=== PATIENT | male | born 1990 | race Caucasian/White ===

== ENCOUNTER 2018-02-16 18:34 | Emergency (ER) | payer MEDICAID ==
[~2018-02-16] VITALS: Ht 177.8 cm; Wt 90.7 kg
[2018-02-16 18:37] VITALS: BP_SYST 123
[2018-02-16] MEDS ORDERED: ACETAMINOPHEN 500 MG TABLET PO ONE (19:15)
[2018-02-16] MEDS ORDERED: IBUPROFEN 800 MG TABLET PO ONE (19:15)
[2018-02-16 20:19] VITALS: BP_SYST 122
== END 2018-02-16 20:19 ==
LOC: SED 18:34
DX: S52.502A Unspecified fracture of the lower end of left radius, initial encounter for closed fracture (principal); R03.0 Elevated blood-pressure reading, without diagnosis of hypertension; W19.XXXA Unspecified fall, initial encounter; Y93.89 Activity, other specified; Y92.89 Other specified places as the place of occurrence of the external cause; Y99.8 Other external cause status
CPT/HCPCS: 99284